=== PATIENT | female | born 1995 | race Native Hawaiian/Other Pacific Islander ===

== ENCOUNTER 2020-02-17 10:37 | Emergency (ER) | payer OTHER ==
[~2020-02-17] VITALS: Ht 160 cm; Wt 78.9 kg
[2020-02-17 10:41] VITALS: TEMP 99.6
[2020-02-17 11:03] LABS: PLATELET COUNT 194 K/uL (152-353)
[2020-02-17 11:17] LABS: POTASSIUM 3.8 mmol/L (3.6-5.2)
[2020-02-17 13:00] VITALS: BP 136/75
== END 2020-02-17 13:00 | disposition home or self-care (01) ==
LOC: ED 10:37
PROVIDERS: Hospitalist
DX: N13.2 Hydronephrosis with renal and ureteral calculous obstruction (principal); N39.0 Urinary tract infection, site not specified; R11.2 Nausea with vomiting, unspecified
CPT/HCPCS: 36415; 80053; 81000; 81025; 83690; 85027; 87077; 87086; 87088; 87186; 96360; 96365; 96375; 99284; J0696; J1170; J1885; J2405